=== PATIENT | female | born 1985 | race African-American/Black ===

== ENCOUNTER 2018-12-04 04:01 | Emergency (ER) | payer OTHER ==
[2018-12-04] MEDS: LIDOCAINE 1% (MDV) 20 ML INJ SC (04:17)
[2018-12-04] MEDS: IBUPROFEN 800 MG TAB PO (04:29)
== END 2018-12-04 04:35 | disposition home or self-care (01) ==
LOC: E/R 04:01
DX: K08.9 Disorder of teeth and supporting structures, unspecified (principal)
CPT/HCPCS: 64400; 99283-25